=== PATIENT | female | born 1990 | race Caucasian/White ===

== ENCOUNTER 2017-01-14 03:25 | Emergency (ER) | payer OTHER ==
[~2017-01-14] VITALS: Ht 152.4 cm; Wt 68.0 kg
--- NOTE | 2017-01-14 03:51 | NUR ---
AYSHA fr home for c/o waking up w/ midepigastric abd pain, N/V x0200 this am, was seen yesterday by PCP for anxiety w/ labs drawn while at PCP office. AOX4, afebrile w/ resp even & unlabored, anxious, nauseated w/ no active vomiting at this time. In gown, on continuous monitoring. Dr. Abraham at bedside for further eval.
[2017-01-14] MEDS ORDERED: LIDOCAINE VISCOUS 2% UD 15 ML UDC ONE (03:56)
[2017-01-14] MEDS ORDERED: MAG HYDROX/AL HYDROX/SIMETH 30 ML UDC ONE (03:57)
[2017-01-14] MEDS ORDERED: ONDANSETRON 4 MG TAB.RAPDIS ONE ×2 (03:57→04:55)
[2017-01-14] MEDS ORDERED: LIDOCAINE VISCOUS 2% UD 15 ML UDC MM ONE (04:00)
[2017-01-14] MEDS ORDERED: ONDANSETRON 4 MG TAB.RAPDIS SL ONE ×2 (04:00→05:00)
[2017-01-14] MEDS ORDERED: MAG HYDROX/AL HYDROX/SIMETH 30 ML UDC PO ONE (04:00)
--- NOTE | 2017-01-14 04:08 | NUR ---
Medicated as ordered for nausea, midepigastric pain.
--- NOTE | 2017-01-14 05:01 | NUR ---
pt more relaxed, asleep in bed w/ resp even & unlabored, report epigastric pain, partially relieved w/ medication, continues to have nausea w/ no active vomiting at this time. Medicated as ordered.
--- NOTE | 2017-01-14 05:36 | NUR ---
Upon discharge, pt started feeling anxious, report epigastric pain returning, states she can't go home because she's afraid her pain will not go away. Dr. Abraham notified. Medicated as ordered for anxiety.
[2017-01-14] MEDS ORDERED: LORAZEPAM 1 MG TABLET ONE (05:37)
[2017-01-14] MEDS ORDERED: LORAZEPAM 1 MG TABLET PO ONE (06:00)
--- NOTE | 2017-01-14 06:25 | NUR ---
pt reports feeling better, resp even & unlabored w/ no active N/V at this time. Patient discharged to home in stable condition. Written and verbal after care instructions given. Patient verbalizes understanding of instruction.
[2017-01-14 06:26] VITALS: BP 124/78
== END 2017-01-14 06:26 | disposition home or self-care (01) ==
LOC: ER 03:28
DX: F41.9 Anxiety disorder, unspecified (principal); K21.9 Gastro-esophageal reflux disease without esophagitis; R11.0 Nausea
CPT/HCPCS: 99284; A4606; Q0162 ×2; Z7610